=== PATIENT | female | born 1985 ===

== ENCOUNTER 2021-07-24 14:10 | Outpatient (CLI) | payer SELFPAY ==
[2021-07-24 15:54] LABS: Hematocrit 35.6 % (30.3-42.9); Mean Corpuscular HGB Conc 34 % (30-34); Mean Corpuscular Volume 87 fl (79-97); Platelet Count 222 K/mm3 (140-440); Red Blood Count 4.08 M/mm3 (3.65-5.03); Red Cell Distribution Width 13.9 % (13.2-15.2)
[2021-07-24 16:14] LABS: Alanine Aminotransferase 11 units/L (7-56); Uric Acid 4.6 mg/dL (3.5-7.6)
[2021-07-24 17:24] VITALS: BP 116/60
--- NOTE | 2021-07-24 18:17 | Ultrasound Report ---
Limited OB ultrasound Biophysical profile INDICATION: well-being FINDINGS: Single live anterior in cephalic position. AMY measures 13.1. heart rate 14 8. Estimated age 36 weeks 3 days. Biophysical profile measures 8 out of 8 IMPRESSION: Live intrauterine . Normal biophysical profile Signer Name: Eric Allen MD Signed: 07/24/2021 6:12 PM Workstation Name: [facility]
--- NOTE | 2021-07-24 18:17 | Ultrasound Report ---
Limited OB ultrasound Biophysical profile INDICATION: well-being FINDINGS: Single live anterior in cephalic position. AMY measures 13.1. heart rate 14 8. Estimated age 36 weeks 3 days. Biophysical profile measures 8 out of 8 IMPRESSION: Live intrauterine . Normal biophysical profile Signer Name: Eric Allen MD Signed: 07/24/2021 6:12 PM Workstation Name: [facility]
== END 2021-07-24 17:50 | disposition home or self-care (01) ==
LOC: TRG 14:10 → LD 14:14 → TRG 17:50
PROVIDERS: ATTEND Obstetrics & Gynecology
DX: O13.3 Gestational [pregnancy-induced] hypertension without significant proteinuria, third trimester (principal); Z3A.36 36 weeks gestation of pregnancy
CPT/HCPCS: 36415; 76815; 76819; 82565; 82962; 83615; 84450; 84460; 84550; 85027

== ENCOUNTER 2021-08-06 20:33 | Inpatient (IN) | payer SELFPAY ==
--- NOTE | 2021-08-06 22:09 | History and Physical Report ---
History of Present Illness Date of examination: 08/06/21 Date of admission: 08/06/2021 Chief complaint: Contractions History of present illness: 35 y/o at 38-1/7 weeks presents to OBT reporting CTX that are irregular. No VB or LOF. Good FM. In OBT, cervix was closed. However, BP's >160/110 in OBT. No SOSA, diplopia, RUQ pain, or scotomata. Labetalol 20 mg IVP x1 given. Thereafter, BP's <140/90. The patient is admitted to L&D for IOL secondary to pre-eclampsia with severe features. She had previous x2. She desires TOLAC. Maternal pulse was suspected to be abnormal. EKG was performed and bigeminy was noted. Cardiology was consulted. She has a history of GDMA2 on metformin. Past History Past Medical History: diabetes (Gestational Diabetes A2 (on Metformin 500 mg BID)) Past Surgical History: section ( x2. Unknown scar.) Family/Genetic History: none Social history: no significant social history - Obstetrical History Expected Date of Delivery: 08/19/21 Actual Gestation: 38 Week(s) 2 Day(s) : 3 Para: 2 Medications and Allergies Allergies Allergy/AdvReac Type Severity Reaction Status Date / Time No Known Allergies Allergy Verified 08/06/21 23:19 Review of Systems All systems: negative - Vital Signs Vital signs: Vital Signs Pulse BP 52 L 140/90 08/06/21 21:32 08/06/21 21:32 Temp Pulse Resp BP Pulse Ox 62 16 140/90 98 08/06/21 22:03 08/06/21 21:35 08/06/21 21:35 08/06/21 22:03 - Physical Exam Breasts: Positive: normal Cardiovascular: Other (Bigeminy) Lungs: Positive: Normal air movement Abdomen: Positive: normal appearance Genitourinary (Female): Positive: normal external genitalia, normal perenium Vulva: both: normal Vagina: Positive: normal moisture Uterus: Positive: enlarged Adnexa: both: normal Anus/Rectum: Positive: normal perianal skin Extremities: Positive: normal Deep Tendon Reflex Grade: Normal +2 - Obstetrical FHR: category 1 Uterine Contraction Monitor Mode: External Cervical Dilatation: 0 Cervical Effacement Percentage: 0 station: -3 Uterine Contraction Pattern: Absent Results Result Diagrams: 08/06/21 22:57 08/06/21 22:57 All other labs normal. Urine Protein to Creatinine Ratio (UPCR) = 0.55. There is significant proteinuria. Estimated 24 hour urine protein= 700 mg EGG= Bigeminy Ultrasound: report reviewed (OB US Limnted= SLIUP. Vertex. EFW= 3317 g (52nd %-ile). AMY= 8.3 cm.) Assessment and Plan - Patient Problems (1) 38 weeks gestation of Current Visit: Yes Status: Acute Plan to address problem: care is up-to- date at [facility]. GBS was not performed. No risk factors for GBS at this time. Will tx with PCN if risk factors develop per CDC MMWR 2010 guidelines. (2) Severe pre-eclampsia in third trimester Current Visit: Yes Status: Acute Plan to address problem: BP >160/110 in OBT and estimated 24 hour urine protein= 700 mg. Therefore, this patient has pre-eclampsia with severe features. Labetalol 20 mg IVP x1 brought BP <140/90. Follow ACOG HTN safety bundle. MgSO4 drip in active labor. (3) Previous delivery affecting , antepartum Current Visit: Yes Status: Acute Plan to address problem: The patient had 2 previous c-sections. The scars are unknown. She desires TOLAC. The patient was counselled regarding the risk of uterine rupture with TOLAC is 0.5-0.7%. She wishes to proceed. (4) Desires (vaginal after ) trial Current Visit: Yes Status: Acute Plan to address problem: The patient had 2 previous c-sections. The scars are unknown. She desires TOLAC. The patient was counselled regarding the risk of uterine rupture with TOLAC is 0.5-0.7%. She wishes to proceed. (5) Gestational diabetes mellitus (GDM) treated with oral hypoglycemic therapy Current Visit: Yes Status: Acute Plan to address problem: HgBA1c was 5.0 on May 28, 2021. However, HgBA1c was 6.4 on admission. As such, this patient is likely an undiagnosed Class B diabetic. Nevertheless, glucose on admission CMP is 76. Check FBS and 2 hour post-prandial accu-check while on CLD. When in active labor, accu-checks q 1 hour. If accu-checks are >99, then start insulin. If accu-checks are <79, then change IVF's to D5 0.9 NS. (6) Bigeminy Current Visit: Yes Status: Acute Plan to address problem: Bigeminy noted on EKG. Cardiology (Dr. Welch) was consulted. S/P Labetalol 20 mg IVP x1. BP has stabilized. (7) Encounter for induction of labor Current Visit: Yes Status: Acute Plan to address problem: Ripen cervix with Cook's catheter and vaginal IMN x1 dose. (8) Advanced maternal age during in third trimester Current Visit: Yes Status: Acute Plan to address problem: Normal quad screen.
[2021-08-06] MEDS ORDERED: LACTATED RINGERS 1,000 ML ONE (23:17)
[2021-08-06] MEDS ORDERED: TERBUTALINE 1 MG/1 ML INJ SUB-Q PRN (23:18)
[2021-08-06] MEDS ORDERED: OXYTOCIN 10 UNIT/1 ML INJ IM PRN (23:18)
[2021-08-06] MEDS ORDERED: fentaNYL 100 MCG/2 ML INJ IV PRN (23:18)
[2021-08-06] MEDS ORDERED: BUTORPHANOL 2 MG/1 ML INJ IV PRN (23:18)
[2021-08-06] MEDS ORDERED: CARBOPROST TROMETHAMINE 250 MCG/1 ML INJ IM PRN (23:18)
[2021-08-06] MEDS ORDERED: ePHEDrine SULFATE 50 MG/1 ML INJ IV PRN (23:18)
[2021-08-06] MEDS ORDERED: LACTATED RINGERS 1,000 ML IV SCH (23:30)
[2021-08-06 23:38] LABS: Bacteria,Urine 1+ /HPF (Negative); Bilirubin,Urine NEG (Negative); Blood,Urine LG (Negative); Color,Urine Yellow (Yellow); Mucus,Urine 1+ /HPF; Protein,Urine <15 mg/dL mg/dL (Negative); Urobilinogen,Urine < 2.0 mg/dL (<2.0)
[2021-08-06] MEDS ORDERED: miSOPROStol 25 MCG TAB PO SCH (23:45)
[2021-08-06] MEDS ORDERED: OXYTOCIN DRIP 30 UNITS/500 ML BAG IV SCH (23:45)
[2021-08-06 23:48] LABS: Creatinine,Urine 52.4 mg/dL (0.1-20.0)
--- NOTE | 2021-08-06 23:48 | Ultrasound Report ---
ULTRASOUND OBSTETRIC Indication: Elevated blood pressure Findings: There is a single intrauterine . BPD = 9.3 cm = 37 weeks, 5 day(s). Head circumference = 33.1 cm = 37 weeks, 5 day(s). Abdominal circumference = 34.7 cm = 38 weeks, 4 day(s). Femur length = 7.0 cm = 36 weeks, 0 day(s). Overall estimated sonographic age = 37 weeks, 4 day(s). heart rate is 150 beats per minute. Estimated weight is 3317 grams position is cephalic. Cervix appears closed. movement is present. Amniotic fluid volume appears normal. Impression: 1. Single living intrauterine with estimated sonographic age of 37 weeks, 4 day(s). 2. No sonographic abnormality identified. Signer Name: James Brown MD Signed: 08/06/2021 11:43 PM Workstation Name: [email or web address]
[2021-08-07 00:05] LABS: Basophils % (Auto) 0.2 % (0.0-1.8); Eosinophils % (Auto) 0.2 % (0.0-4.3); Hematocrit 36.2 % (30.3-42.9); Hemoglobin 12.4 gm/dl (10.1-14.3); Lymphocytes # (Auto) 2.7 K/mm3 (1.2-5.4); Lymphocytes % (Auto) 33.6 % (13.4-35.0); Mean Corpuscular HGB Conc 34 % (30-34); Mean Corpuscular Volume 87 fl (79-97); Monocytes # (Auto) 0.5 K/mm3 (0.0-0.8); Platelet Count 181 K/mm3 (140-440); Red Blood Count 4.17 M/mm3 (3.65-5.03); Red Cell Distribution Width 14.5 % (13.2-15.2)
[2021-08-07 00:23] LABS: Alanine Aminotransferase 9 units/L (7-56); Albumin 3.3 g/dL (3.9-5); Blood Urea Nitrogen 9 mg/dL (7-17); Calcium 8.6 mg/dL (8.4-10.2); Hemolysis Index 3
[2021-08-07 00:29] LABS: BUN/Creatinine Ratio 15
[2021-08-07] MEDS ORDERED: SODIUM CHLORIDE 0.9% 1000 ML 1,000 ML IV SCH (02:00)
[2021-08-07 02:31] LABS: Uric Acid 4.4 mg/dL (3.5-7.6)
[2021-08-07] MEDS: ACETAMINOPHEN 325 MG TAB PO PRN ×2 (05:26→12:19)
[2021-08-07] MEDS ORDERED: MAGNESIUM SULFATE 2 GM/50 ML BAG IV ONE (06:00)
[2021-08-07] MEDS ORDERED: MAGNESIUM SULFATE 4 GM/100 ML BAG IV ONE (06:00)
[2021-08-07] MEDS ORDERED: MAGNESIUM SULFATE 40GM/1000ML 40 GM/1,000 ML BAG IV SCH (06:20)
[2021-08-07] MEDS ORDERED: hydrALAZINE 20 MG/1 ML INJ IV STA (07:20)
[2021-08-07] MEDS ORDERED: hydrALAZINE 20 MG/1 ML INJ ONE (07:23)
[2021-08-07] MEDS ORDERED: LACTATED RINGERS 1,000 ML ONE (08:05)
[2021-08-07] MEDS ORDERED: miSOPROStol 200 MCG TAB ONE (08:31)
[2021-08-07] MEDS ORDERED: MINERAL OIL 30 ML ORAL LIQD ONE (08:32)
[2021-08-07] MEDS ORDERED: LIDOCAINE (2%) 20 MG/1 ML VIAL 20 ML MDV INFILTRATI ONE (08:43)
[2021-08-07] MEDS ORDERED: WITCH HAZEL/ GLYCERIN PAD TP PRN ×2 (11:00→19:44)
[2021-08-07] MEDS ORDERED: LANOLIN/ZINC/DIMETHICONE (LANSINOH) 7 GM TP PRN ×2 (11:00→19:44)
[2021-08-07] MEDS ORDERED: HYDROcodone/ACETAMINOPHEN 5-325 MG TAB PO PRN (11:00)
[2021-08-07] MEDS ORDERED: diphenhydrAMINE 25 MG CAP PO PRN ×2 (11:00→19:44)
[2021-08-07] MEDS ORDERED: BENZOCAINE/MENTHOL 20/0.5% TOP SPRAY 56 GM TP PRN (11:00)
[2021-08-07] MEDS ORDERED: ONDANSETRON 4 MG/2 ML INJ IV PRN ×2 (11:00→19:44)
--- NOTE | 2021-08-07 11:16 | Procedure Note ---
OB Delivery Note - Delivery Date of Delivery: 08/07/21 (0835) Surgeon: SIVAKUMAR MASON Estimated blood loss: 300cc - Vaginal Delivery presentation: vertex Delivery position: OA Intrapartum events: preeclampsia, other(please specify) (GDM A2) Delivery induction: other (Monoket 20mg per vagina and Aaron Cathether) Delivery monitor: external FHT, internal uterine Route of delivery: Delivery placenta: spontaneous Delivery cord: 3 umbilical vessels Delivery laceration: 1st degree Delivery repair: vicryl Anesthesia: local Delivery comments: of a live 7'6 male without pain control with Apgars of 8 and 9 at 0835 on 08/07/2021 under a 1st degree periurethral laceration. directly to maternal abd/chest, skin to skin contact. Laceration repaired with 2-0 Vicryl on a SH under local 2% Lidocaine. Spontaneous delivery of placenta complete and intact with Cook side presenting at 0840. Fundus is firm and midline located 4 below the U. Lochia is scant. 800mcg placed per rectum. Cord blood collected; placenta to pathology. - Infant A at 1 minute: 8 at 5 minutes: 9 Gender: Male (7'6)
[2021-08-07] MEDS ORDERED: PROMETHAZINE 25 MG RECT SUPP PR PRN ×2 (11:30→19:44)
--- NOTE | 2021-08-07 17:12 | Consultation ---
History of Present Illness Consult date: 08/07/21 Requesting physician: MELIDA SINGH Consult reason: other (ventricular bigeminy) History of present illness: This is a 35-year-old female, unknown to our practice, with past medical history significant for gestational diabetes, preeclampsia, and tachycardia, who presented to [facility] for irregular contractions. Information was obtained using an radiology interventional physician. Upon review of records, her blood pressure was elevated upon arrival to the hospital where she was admitted to labor and delivery with preeclampsia with severe features. She was subsequently found to have an abnormal pulse, an EKG was performed which shows ventricular bigeminy. Upon my exam, patient was approximately 1 hour post delivery of her child. She denied palpitations, chest pain, or shortness of breath. She did endorse a slight h eadache and stated she had had some dizziness for the last 3 weeks. She further stated that she has had tachycardia since she was 10 years old. However, she could not remember the name of the medication that was used. She plans to breast-feed. Of note, after speaking with the TOWER TECHNICIAN, she reported that the patient had seen a metal weigher at some point many years ago who had ordered a Holter monitor and told her that she no longer needed the medication for tachycardia. Cardiology was consulted for ventricular bigeminy. Past History Past Medical History: other (Preeclampsia, gestational diabetes, tachycardia) Past Surgical History: Social history: no significant social history Family history: CAD, hypertension Medications and Allergies Allergies Allergy/AdvReac Type Severity Reaction Status Date / Time No Known Allergies Allergy Verified 08/06/21 23:19 Active Meds: Active Medications Acetaminophen (Acetaminophen 325 Mg Tab) 650 mg PO Q4H PRN PRN Reason: Pain, Mild (1-3) Last Admin: 08/07/21 12:19 Dose: 650 mg Hydrocodone Bitart/Acetaminophen (Hydrocodone/Acetaminophen 5-325 Mg Tab) 2 each PO Q6H PRN PRN Reason: Pain, Moderate (4-6) Benzocaine/Menthol (Benzocaine/Menthol 20/0.5% [place] 56 Gm) 1 spray TP PRN PRN PRN Reason: Episiotomy Pain Bisacodyl (Bisacodyl 10 Mg Rect Supp) 10 mg NJ BID PRN PRN Reason: Constipation Carboprost Tromethamine (Carboprost Tromethamine 250 Mcg/1 Ml Inj) 250 mcg IM ONCE PRN PRN Reason: Uterine Bleeding Diphenhydramine HCl (Diphenhydramine 25 Mg Cap) 25 mg PO Q6H PRN PRN Reason: Itching Ephedrine Sulfate (Ephedrine Sulfate 50 Mg/1 Ml Inj) 10 mg IV Q2M PRN PRN Reason: Hypotension Oxytocin/Sodium Chloride (Pitocin/Ns 30 Unit/500ml) 30 units in 500 mls @ 40 mls/hr IV TITR ELENO; Protocol Magnesium Sulfate (Magnesium Sulfate 40gm/1000ml) 40 gm in 1,000 mls @ 50 mls/hr IV DIRECT ELENO Sodium Chloride (Nacl 0.9% 1000 Ml) 1,000 mls @ 125 mls/hr IV DIRECT ELENO Last Admin: 08/07/21 03:10 Dose: 125 mls/hr Multi-Ingredient Ointment (Lanolin/Zinc/Dimethicone (Lansinoh) 7 Gm) 1 applic TP PRN PRN PRN Reason: Sore Nipples Multivitamins/Iron/Calcium ( [id number] Fumarate-Folic Acid Vit Tab) 1 ea ch PO QDAY ELENO Ondansetron HCl (Ondansetron 4 Mg/2 Ml Inj) 4 mg IV Q8H PRN PRN Reason: Nausea And Vomiting Oxytocin (Oxytocin 10 Unit/1 Ml Inj) 10 unit IM ONCE PRN PRN Reason: Uterine Bleeding Promethazine HCl (Promethazine 25 Mg Rect Supp) 25 mg NJ Q6H PRN PRN Reason: Nausea And Vomiting Sodium Chloride (Sodium Chloride 0.9% 10 Ml Flush Syringe) 10 ml IV PRN PRN PRN Reason: flush Terbutaline Sulfate (Terbutaline 1 Mg/1 Ml Inj) 0.25 mg SUB-Q ONCE PRN PRN Reason: Hyperstimulation/Hypertonicity Witch Linn/Glycerin (Witch [place]inn/ Glycerin Pad) 1 each TP PRN PRN PRN Reason: Hemorrhoid/cleansing/soothing Review of Systems All systems: negative Cardiovascular: lightheadedness Neurological: headaches Physical Examination Vital Signs Pulse BP 52 L 140/90 08/06/21 21:32 08/06/21 21:32 General appearance: no acute distress HEENT: Positive: Normocephaly, Mucus Membranes Moist Neck: Positive: trachea midline Cardiac: Positive: S1/S2, Bradycardia Lungs: Positive: Normal Exam Neuro: Positive: Grossly Intact Abdomen: Positive: Soft, Active Bowel Sounds Female genitourinary: deferred Skin: Negative: Rash Extremities: Present: normal. Absent: edema Results 08/06/21 22:57 08/06/21 22:57 Cardiac Enzymes 08/06/21 Range/Units 22:57 AST 23 (5-40) units/L Lactate Dehydrogenase 172 (91-180) units/L CBC 08/06/21 Range/Units 22:57 WBC 7.9 (4.5-11.0) K/mm3 RBC 4.17 (3.65-5.03) M/mm3 Hgb 12.4 (10.1-14.3) gm/dl Hct 36.2 (30.3-42.9) % Plt Count 181 (140-440) K/mm3 Lymph # (Auto) 2.7 (1.2-5.4) K/mm3 [place] # (Auto) 0.5 (0.0-0.8) K/mm3 Eos # (Auto) 0.0 (0.0-0.4) K/mm3 Baso # (Auto) 0.0 (0.0-0.1) K/mm3 Comprehensive Metabolic Panel 08/06/21 Range/Units 22:57 Sodium 135 L (137-145) mmol/L Potassium 3.8 (3.6-5.0) mmol/L Chloride 103.2 (98-107) mmol/L Carbon Dioxide 16 L (22-30) mmol/L BUN 9 (7-17) mg/dL Creatinine 0.6 (0.6-1.2) mg/dL Glucose 76 (65-100) mg/dL Calcium 8.6 (8.4-10.2) mg/dL AST 23 (5-40) units/L ALT 9 (7-56) units/L Alkaline Phosphatase 177 H (35-129) units/L Total Protein 6.5 (6.3-8.2) g/dL Albumin 3.3 L (3.9-5) g/dL - Imaging and Cardiology Echo: report reviewed EKG: image reviewed EKG interpretations - EKG Sinus rhythms and dysrhythmias: sinus bradycardia (Ventricular bigeminy) Assessment and Plan Assessment Ventricular bigeminy Preeclampsia state History of gestational diabetes History of section History of tachycardia Cardiographics EKG- ventricular bigeminy Echo 08/07/21-LV systolic function is normal. LVEF is 50%. There is no pericardial effusion Recommendations/plan -Upon exam, patient blood pressure controlled systolic blood pressure in the 120s. -Patient noted to be on magnesium infusion -Echocardiogram as above, EF 50% -Recommend continuous telemetry monitoring. Have discussed this with TOWER TECHNICIAN, however continuous telemetry is unable to be done in labor and delivery. Have spoken with the OB to assist in the transfer to a telemetry floor once patient is stable from L&D standpoint. -Recheck EKG -Consider labetalol if patient continues in ventricular bigeminy. Continuous telemetry monitoring is highly encouraged. Thank you for this consultation, will follow along. Patient seen in conjunction with Dr. Mcintosh who agrees with the assessment and management of this patient. - Patient Problems (1) 38 weeks gestation of Current Visit: Yes Status: Acute (2) Advanced maternal age during in third trimester Current Visit: Yes Status: Acute (3) Bigeminy Current Visit: Yes Status: Acute (4) Encounter for induction of labor Current Visit: Yes Status: Acute (5) Gestational diabetes mellitus (GDM) treated with oral hypoglycemic therapy Current Visit: Yes Status: Acute (6) Severe pre-eclampsia in third trimester Current Visit: Yes Status: Acute
[2021-08-07] MEDS ORDERED: PROMETHAZINE 25 MG TAB PO PRN (19:44)
[2021-08-07] MEDS ORDERED: MAGNESIUM HYDROXIDE (MOM) ORAL LIQD UDC PO PRN (19:44)
[2021-08-07 21:19] LABS: Hemoglobin 11.3 gm/dl (10.1-14.3)
[2021-08-08] MEDS ORDERED: HYDROcodone/ACETAMINOPHEN 5-325 MG TAB PO PRN (08:00)
[2021-08-08] MEDS ORDERED: MAGNESIUM SULFATE 40GM/1000ML 40 GM/1,000 ML BAG IV SCH (08:35)
[2021-08-08] MEDS: ACETAMINOPHEN 325 MG TAB PO PRN (09:41)
[2021-08-08] MEDS: DOCUSATE SODIUM 100 MG CAP PO SCH ×2 (09:41→21:24)
[2021-08-08 09:47] LABS: Uric Acid 5.1 mg/dL (3.5-7.6)
[2021-08-08 09:54] LABS: Hematocrit 36.9 % (30.3-42.9); Hemoglobin 12.1 gm/dl (10.1-14.3); Mean Corpuscular HGB Conc 33 % (30-34); Mean Corpuscular Volume 87 fl (79-97); Platelet Count 217 K/mm3 (140-440); Red Blood Count 4.23 M/mm3 (3.65-5.03); Red Cell Distribution Width 14.5 % (13.2-15.2)
[2021-08-08] MEDS ORDERED: PRENATAL VIT27-FE FUMARATE-FOLIC ACID VIT TAB PO SCH (10:00)
[2021-08-08] MEDS ORDERED: SODIUM CHLORIDE 0.9% 1000 ML 1,000 ML IV SCH (11:45)
[2021-08-08 12:28] LABS: Blood Urea Nitrogen 5 mg/dL (7-17); Calcium 6.8 mg/dL (8.4-10.2); Hemolysis Index 13
[2021-08-08 12:53] LABS: BUN/Creatinine Ratio 7
--- NOTE | 2021-08-08 14:36 | Progress Note ---
Assessment and Plan - Patient Problems (1) Status post vaginal delivery Current Visit: Yes Status: Acute Plan to address problem: Stable obstetrically. Subjective - Subjective Date of service: 08/08/21 Principal diagnosis: day 1. Patient reports: appetite normal, voiding normally, pain well controlled, other (Bedrest on telemetry unit.) : doing well Objective - Vital Signs Latest vital signs: Vital Signs Temp Pulse Resp BP Pulse Ox 08/08/21 08:59 94 H 08/08/21 08:39 98 08/08/21 08:36 97.8 F 64 18 149/87 96 08/08/21 04:00 98 08/08/21 03:38 98.8 F 96 H 12 124/82 99 08/07/21 23:19 99.5 F 97 H 12 142/88 97 08/07/21 20:00 100 08/07/21 19:37 98.7 F 94 H 12 135/83 98 08/07/21 18:25 88 18 134/97 99 08/07/21 16:56 103 H 99 08/07/21 16:51 104 H 100 08/07/21 16:47 104 H 123/73 08/07/21 16:46 107 H 100 08/07/21 16:41 108 H 100 08/07/21 16:36 98 H 98 08/07/21 16:32 94 H 129/73 08/07/21 16:31 90 98 08/07/21 16:26 98 H 98 08/07/21 16:21 97 H 99 08/07/21 16:17 100 H 128/74 08/07/21 16:16 95 H 98 08/07/21 16:11 99 H 98 08/07/21 16:06 94 H 98 08/07/21 16:02 93 H 133/71 08/07/21 16:01 95 H 98 08/07/21 15:56 99 H 98 08/07/21 15:51 96 H 98 08/07/21 15:47 104 H 122/68 08/07/21 15:46 100 H 98 08/07/21 15:41 105 H 99 08/07/21 15:36 104 H 98 08/07/21 15:32 101 H 140/64 08/07/21 15:31 109 H 98 08/07/21 15:26 108 H 98 08/07/21 15:21 98 H 98 08/07/21 15:17 102 H 129/81 08/07/21 15:16 102 H 99 08/07/21 15:11 101 H 98 08/07/21 15:06 108 H 98 08/07/21 15:02 92 H 126/71 08/07/21 15:01 96 H 99 08/07/21 14:56 96 H 99 08/07/21 14:51 116 H 97 08/07/21 14:47 110 H 119/70 08/07/21 14:46 108 H 98 08/07/21 14:41 120 H 99 08/07/21 14:36 111 H 99 Intake and Output 08/07/21 08/08/21 08/08/21 23:59 07:59 15:59 Intake Total 240 Output Total 600 1600 Balance -600 -1360 Intake: Oral 240 Output: Urine 600 1600 Indwelling Catheter 600 1600 Other: Total, Intake Amount 240 Total, Output Amount 600 450 Voiding Method Indwelling Catheter Indwelling Catheter - Exam Breasts: Present: deferred Lungs: Present: Normal air movement Abdomen: Present: normal appearance, soft Uterus: Present: normal, firm Extremities: Present: normal Deep Tendon Reflex Grade: Normal +2 - Labs Labs: Abnormal lab results 08/08/21 08/08/21 08/08/21 Range/Units 08:42 08:44 08:44 WBC 11.6 H (4.5-11.0) K/mm3 Sodium 132 L (137-145) mmol/L Carbon Dioxide 18 L (22-30) mmol/L BUN 5 L (7-17) mg/dL Calcium 6.8 L D (8.4-10.2) mg/dL Magnesium 4.50 H (1.7-2.3) mg/dL Lactate Dehydrogenase 374 H (91-180) units/L
--- NOTE | 2021-08-08 15:05 | Progress Note ---
Assessment and Plan This is a 35-year-old female, unknown to our practice, with past medical history significant for gestational diabetes, preeclampsia, and tachycardia, who presented to [facility] for irregular contractions. Ventricular bigeminy Preeclampsia state History of gestational diabetes History of section History of tachycardia Echo 08/07/21-LV systolic function is normal. LVEF is 50%. There is no pericardial effusion Plan: Repeat EKG shows sinus rhythm 86 no signs of bigeminy Patient currently sinus tach with PVCs on monitor. Patient also hypertensive. If okay with OB initiate labetalol 100 mg p.o. twice daily Sinus tach may be due to dehydration if okay with OB recommend initiation of IVF. Repeat BMP in a.m. Patient seen in conjunction with Dr. Mcintosh who agrees with the assessment and management of this patient. - Patient Problems (1) 38 weeks gestation of Current Visit: Yes Status: Acute (2) Bigeminy Current Visit: Yes Status: Acute (3) Gestational diabetes mellitus (GDM) treated with oral hypoglycemic therapy Current Visit: Yes Status: Acute (4) Status post vaginal delivery Current Visit: Yes Status: Acute Subjective Date of service: 08/08/21 Principal diagnosis: day 1. Interval history: Patient resting in bed in no acute distress. Patient reports feeling well this a.m. Patient sinus tach 100s and episodes into the 130s on monitor with PVCs Objective Vital Signs Temp Pulse Resp BP Pulse Ox 08/08/21 08:59 94 H 08/08/21 08:39 98 08/08/21 08:36 97.8 F 64 18 149/87 96 08/08/21 04:00 98 08/08/21 03:38 98.8 F 96 H 12 124/82 99 08/07/21 23:19 99.5 F 97 H 12 142/88 97 08/07/21 20:00 100 08/07/21 19:37 98.7 F 94 H 12 135/83 98 08/07/21 18:25 88 18 134/97 99 08/07/21 16:56 103 H 99 08/07/21 16:51 104 H 100 08/07/21 16:47 104 H 123/73 08/07/21 16:46 107 H 100 08/07/21 16:41 108 H 100 08/07/21 16:36 98 H 98 08/07/21 16:32 94 H 129/73 08/07/21 16:31 90 98 08/07/21 16:26 98 H 98 08/07/21 16:21 97 H 99 08/07/21 16:17 100 H 128/74 08/07/21 16:16 95 H 98 08/07/21 16:11 99 H 98 08/07/21 16:06 94 H 98 08/07/21 16:02 93 H 133/71 08/07/21 16:01 95 H 98 08/07/21 15:56 99 H 98 08/07/21 15:51 96 H 98 08/07/21 15:47 104 H 122/68 08/07/21 15:46 100 H 98 08/07/21 15:41 105 H 99 08/07/21 15:36 104 H 98 08/07/21 15:32 101 H 140/64 08/07/21 15:31 109 H 98 08/07/21 15:26 108 H 98 08/07/21 15:21 98 H 98 08/07/21 15:17 102 H 129/81 08/07/21 15:16 102 H 99 08/07/21 15:11 101 H 98 08/07/21 15:06 108 H 98 - Physical Examination General: No Apparent Distress HEENT: Positive: Normocephaly, Mucus Membranes Moist Neck: Positive: trachea midline Cardiac: Positive: Regular Rhythm, Tachycardia Lungs: Positive: clear to auscultation, Normal Breath Sounds Neuro: Positive: Grossly Intact Abdomen: Positive: Soft, Active Bowel Sounds Skin: Negative: Rash Extremities: Present: normal. Absent: edema - Labs and Meds Cardiac Enzymes 08/08/21 Range/Units 08:44 AST 30 (5-40) units/L Lactate Dehydrogenase 374 H (91-180) units/L CBC 08/07/21 08/08/21 Range/Units 20:47 08:44 WBC 11.6 H (4.5-11.0) K/mm3 RBC 4.23 (3.65-5.03) M/mm3 Hgb 11.3 12.1 (10.1-14.3) gm/dl Hct 33.0 36.9 (30.3-42.9) % Plt Count 217 (140-440) K/mm3 Comprehensive Metabolic Panel 08/08/21 08/08/21 Range/Units 08:42 08:44 Sodium 132 L (137-145) mmol/L Potassium 4.0 (3.6-5.0) mmol/L Chloride 98.7 (98-107) mmol/L Carbon Dioxide 18 L (22-30) mmol/L BUN 5 L (7-17) mg/dL Creatinine 0.7 (0.6-1.2) mg/dL Glucose 100 (65-100) mg/dL Calcium 6.8 L D (8.4-10.2) mg/dL AST 30 (5-40) units/L ALT 8 (7-56) units/L - Imaging and Cardiology EKG: image reviewed Echo: report reviewed - Telemetry EKG Rhythm: Sinus Rhythm - EKG Sinus rhythms and dysrhythmias: sinus rhythm
--- NOTE | 2021-08-08 20:14 | Electrocardiograph Report ---
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
--- NOTE | 2021-08-08 20:35 | Electrocardiograph Report ---
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
[2021-08-09] MEDS: DOCUSATE SODIUM 100 MG CAP PO SCH ×2 (09:16→22:30)
[2021-08-09 10:32] LABS: Basophils % (Auto) 0.3 % (0.0-1.8); Eosinophils # (Auto) 0.1 K/mm3 (0.0-0.4); Eosinophils % (Auto) 0.8 % (0.0-4.3); Hematocrit 32.2 % (30.3-42.9); Hemoglobin 10.9 gm/dl (10.1-14.3); Lymphocytes # (Auto) 2.6 K/mm3 (1.2-5.4); Lymphocytes % (Auto) 28.9 % (13.4-35.0); Mean Corpuscular HGB Conc 34 % (30-34); Mean Corpuscular Volume 88 fl (79-97); Monocytes # (Auto) 0.5 K/mm3 (0.0-0.8); Monocytes % (Auto) 5.6 % (0.0-7.3); Platelet Count 208 K/mm3 (140-440); Red Blood Count 3.68 M/mm3 (3.65-5.03); Red Cell Distribution Width 14.8 % (13.2-15.2)
[2021-08-09 10:51] LABS: Hematocrit 31.7 % (30.3-42.9); Hemoglobin 10.9 gm/dl (10.1-14.3); Mean Corpuscular HGB Conc 35 % (30-34); Mean Corpuscular Volume 87 fl (79-97); Platelet Count 208 K/mm3 (140-440); Red Blood Count 3.64 M/mm3 (3.65-5.03)
[2021-08-09 11:01] LABS: Alanine Aminotransferase 8 units/L (7-56); Albumin 2.8 g/dL (3.9-5); BUN/Creatinine Ratio 11; Blood Urea Nitrogen 8 mg/dL (7-17); Calcium 8.7 mg/dL (8.4-10.2); Hemolysis Index 4
[2021-08-09 11:10] LABS: Blood Urea Nitrogen 8 mg/dL (7-17); Calcium 8.8 mg/dL (8.4-10.2); Hemolysis Index 1
[2021-08-09 11:12] LABS: BUN/Creatinine Ratio 11
--- NOTE | 2021-08-09 11:37 | Progress Note ---
Assessment and Plan This is a 35-year-old female, unknown to our practice, with past medical history significant for gestational diabetes, preeclampsia, and tachycardia, who presented to [facility] for irregular contractions. Ventricular bigeminy Preeclampsia state History of gestational diabetes History of section History of tachycardia Echo 08/07/21-LV systolic function is normal. LVEF is 50%. There is no pericardial effusion Plan: Patient having bigeminy on monitor this a.m. if okay with OB increased to labetalol 150 mg p.o. twice daily Patient no longer in sinus tachycardia If patient no longer in bigeminy this this afternoon patient may be transferred to unit cardiac status otherwise stable Patient should follow-up as an outpatient 1 to 2 weeks after discharge Patient seen in conjunction with Dr. Mcintosh who agrees with the assessment and management of this patient. - Patient Problems (1) 38 weeks gestation of Current Visit: Yes Status: Acute (2) Bigeminy Current Visit: Yes Status: Acute (3) Gestational diabetes mellitus (GDM) treated with oral hypoglycemic therapy Current Visit: Yes Status: Acute (4) Status post vaginal delivery Current Visit: Yes Status: Acute Subjective Date of service: 08/09/21 Principal diagnosis: day 1. Interval history: Patient resting in bed in no acute distress. Patient has no complaints this AM Patient sinus tach trending 80s to 90s with bigeminy this a.m. Objective Vital Signs Temp Pulse Resp BP Pulse Ox 08/09/21 09:15 100 H 08/09/21 07:38 98.7 F 52 L 16 130/65 97 08/09/21 03:28 98.7 F 78 16 135/86 99 08/08/21 23:30 98.8 F 79 12 127/81 98 08/08/21 19:44 98 08/08/21 19:19 98.8 F 92 H 16 106/68 99 08/08/21 16:13 98.7 F 86 18 123/70 96 - Physical Examination General: No Apparent Distress HEENT: Positive: Normocephaly, Mucus Membranes Moist Neck: Positive: trachea midline Cardiac: Positive: Reg Rate and Rhythm Lungs: Positive: Normal Breath Sounds Neuro: Positive: Grossly Intact Abdomen: Positive: Soft, Active Bowel Sounds Skin: Negative: Rash Extremities: Present: normal. Absent: edema - Labs and Meds Cardiac Enzymes 08/09/21 Range/Units 10:06 AST 29 (5-40) units/L CBC 08/09/21 08/09/21 Range/Units 10:06 10:26 WBC 9.0 9.2 (4.5-11.0) K/mm3 RBC 3.68 3.64 L (3.65-5.03) M/mm3 Hgb 10.9 10.9 (10.1-14.3) gm/dl Hct 32.2 31.7 (30.3-42.9) % Plt Count 208 208 (140-440) K/mm3 Lymph # (Auto) 2.6 (1.2-5.4) K/mm3 [place] # (Auto) 0.5 (0.0-0.8) K/mm3 Eos # (Auto) 0.1 (0.0-0.4) K/mm3 Baso # (Auto) 0.0 (0.0-0.1) K/mm3 Comprehensive Metabolic Panel 08/08/21 08/09/21 08/09/21 Range/Units 08:42 10:06 10:26 Sodium 132 L 141 D 139 (137-145) mmol/L Potassium 4.0 4.2 4.2 (3.6-5.0) mmol/L Chloride 98.7 107.5 H 106.7 (98-107) mmol/L Carbon Dioxide 18 L 20 L 20 L (22-30) mmol/L BUN 5 L 8 8 (7-17) mg/dL Creatinine 0.7 0.7 0.7 (0.6-1.2) mg/dL Glucose 100 120 H 117 H (65-100) mg/dL Calcium 6.8 L D 8.7 D 8.8 (8.4-10.2) mg/dL AST 29 (5-40) units/L ALT 8 (7-56) units/L Alkaline Phosphatase 117 (35-129) units/L Total Protein 5.7 L (6.3-8.2) g/dL Albumin 2.8 L (3.9-5) g/dL - Imaging and Cardiology EKG: image reviewed Echo: report reviewed - Telemetry EKG Rhythm: Sinus Rhythm - EKG Sinus rhythms and dysrhythmias: sinus rhythm Ventricular dysrhythmias: ventricular premature com (Bigeminy)
--- NOTE | 2021-08-09 17:30 | Progress Note ---
Assessment and Plan A: day 2 S/P . Anemia. Preeclampsia; blood pressure controlled on Labetalol 150 mg po BID. GDM. Bigeminy, resolved. A: Supplement with iron. Continue Labetalol 150 mg po BID. Anticipate discharge home tomorrow if patient continues to do well. Subjective - Subjective Date of service: 08/09/21 Principal diagnosis: day 2 S/P Interval history: Doing well. Patient reports: appetite normal, voiding normally, pain well controlled, flatus, ambulating normally, no dizzy ambulation, no nauseated [place]: doing well Objective - Vital Signs Latest vital signs: Vital Signs Temp Pulse Pulse Resp BP Pulse Ox 08/09/21 16:10 97.8 F 88 20 127/83 99 08/09/21 13:30 99.0 F 102 H 16 113/75 99 08/09/21 12:44 75 16 99 08/09/21 09:15 100 H 08/09/21 07:38 98.7 F 52 L 16 130/65 97 08/09/21 03:28 98.7 F 78 16 135/86 99 08/08/21 23:30 98.8 F 79 12 127/81 98 08/08/21 19:44 98 08/08/21 19:19 98.8 F 92 H 16 106/68 99 Intake and Output 08/09/21 08/09/21 08/09/21 07:59 15:59 23:59 Other: Voiding Method Toilet - Exam Abdomen: Present: normal appearance, soft. Absent: distention, tenderness, guarding, rigidity Uterus: Present: normal, firm, fundal height below umbilicus. Absent: bogginess, tenderness Extremities: Absent: tenderness, edema - Labs Labs: Abnormal lab results 08/09/21 08/09/21 08/09/21 Range/Units 10:06 10:26 10:26 RBC 3.64 L (3.65-5.03) M/mm3 MCHC 35 H (30-34) % Chloride 107.5 H (98-107) mmol/L Carbon Dioxide 20 L 20 L (22-30) mmol/L Glucose 120 H 117 H (65-100) mg/dL POC Glucose (70-105) mg/dL Total Protein 5.7 L (6.3-8.2) g/dL Albumin 2.8 L (3.9-5) g/dL 08/09/21 Range/Units 14:10 RBC (3.65-5.03) M/mm3 MCHC (30-34) % Chloride (98-107) mmol/L Carbon Dioxide (22-30) mmol/L Glucose (65-100) mg/dL POC Glucose 128 H (70-105) mg/dL Total Protein (6.3-8.2) g/dL Albumin (3.9-5) g/dL
[2021-08-09] MEDS: FERROUS SULFATE 325 MG TAB PO SCH (22:30)
--- NOTE | 2021-08-10 08:18 | Progress Note ---
Assessment and Plan A: day 3 S/P . Anemia. Preeclampsia. BP controlled on Labetalol 150 mg po BID. GDM. Bradycardia. P: Consulted with Dr. Meier re: pulse of [address] Meier states to have nurse call quality assurance qa lab analyst who saw patient here in hospital re: bradycardia. Called RN Leyla and instructed her to call vital signs to quality assurance qa lab analyst. Continue iron supplementation. Continue routine care. Subjective - Subjective Date of service: 08/10/21 Principal diagnosis: day 3 S/P Interval history: Doing well. Patient reports: appetite normal, voiding normally, pain well controlled, ambulating normally, no dizzy ambulation, no nauseated [place]: doing well Objective - Vital Signs Latest vital signs: Vital Signs Temp Pulse Pulse Resp BP BP Pulse Ox 08/10/21 06:29 50 L 148/77 08/10/21 01:35 97.6 F 84 18 138/67 98 08/09/21 22:31 50 L 136/71 08/09/21 22:29 98.1 F 50 L 16 136/71 99 08/09/21 21:35 08/09/21 16:10 97.8 F 88 20 127/83 99 08/09/21 13:30 99.0 F 102 H 16 113/75 99 08/09/21 12:44 75 16 99 08/09/21 09:15 100 H Pulse Ox 08/10/21 06:29 08/10/21 01:35 08/09/21 22:31 08/09/21 22:29 08/09/21 21:35 98 08/09/21 16:10 08/09/21 13:30 08/09/21 12:44 08/09/21 09:15 Intake and Output 08/09/21 08/10/21 08/10/21 23:59 07:59 15:59 Intake Total 240 120 Output Total 100 Balance 140 120 Intake: Oral 240 120 Output: Urine 100 Void 100 Other: Total, Intake Amount 240 120 Total, Output Amount 100 # Voids Void 1 - Exam Cardiovascular: Present: Other (Regular, pulse of 50 bpm) Lungs: Present: Clear to auscultation Abdomen: Present: normal appearance, soft. Absent: distention, tenderness, guarding, rigidity Uterus: Present: normal, firm, fundal height below umbilicus (fundus firm and midline at 2 FB below umbilicus). Absent: bogginess, tenderness Extremities: Absent: tenderness - Labs Labs: Abnormal lab results 08/09/21 08/09/21 08/09/21 Range/Units 10:06 10:26 10:26 RBC 3.64 L (3.65-5.03) M/mm3 MCHC 35 H (30-34) % Chloride 107.5 H (98-107) mmol/L Carbon Dioxide 20 L 20 L (22-30) mmol/L Glucose 120 H 117 H (65-100) mg/dL POC Glucose (70-105) mg/dL Total Protein 5.7 L (6.3-8.2) g/dL Albumin 2.8 L (3.9-5) g/dL 08/09/21 Range/Units 14:10 RBC (3.65-5.03) M/mm3 MCHC (30-34) % Chloride (98-107) mmol/L Carbon Dioxide (22-30) mmol/L Glucose (65-100) mg/dL POC Glucose 128 H (70-105) mg/dL Total Protein (6.3-8.2) g/dL Albumin (3.9-5) g/dL
[2021-08-10] MEDS: ACETAMINOPHEN 325 MG TAB PO PRN (10:17)
[2021-08-10] MEDS: DOCUSATE SODIUM 100 MG CAP PO SCH ×2 (10:18→21:51)
[2021-08-10] MEDS: FERROUS SULFATE 325 MG TAB PO SCH ×2 (10:18→21:51)
--- NOTE | 2021-08-10 10:32 | Progress Note ---
Assessment and Plan This is a 35-year-old female, unknown to our practice, with past medical history significant for gestational diabetes, preeclampsia, and tachycardia, who presented to [facility] for irregular contractions. Ventricular bigeminy Preeclampsia state History of gestational diabetes History of section History of tachycardia Echo 08/07/21-LV systolic function is normal. LVEF is 50%. There is no pericardial effusion rec: Decrease labetalol 100 mg twice a day as patient has a mild dizziness. Patient will follow up cardiology clinic in [address] christopher balbuena, [phone] [facility], no further bigemeny noted Subjective Date of service: 08/10/21 Principal diagnosis: day 3 S/P Interval history: no palpations mild dizziness Objective Vital Signs Temp Pulse Pulse Resp BP BP Pulse Ox 08/10/21 10:16 50 L 08/10/21 08:31 98.3 F 50 L 22 150/58 100 08/10/21 06:29 50 L 148/77 08/10/21 01:35 97.6 F 84 18 138/67 98 08/09/21 22:31 50 L 136/71 08/09/21 22:29 98.1 F 50 L 16 136/71 99 08/09/21 21:35 08/09/21 16:10 97.8 F 88 20 127/83 99 08/09/21 13:30 99.0 F 102 H 16 113/75 99 08/09/21 12:44 75 16 99 Pulse Ox 08/10/21 10:16 08/10/21 08:31 08/10/21 06:29 08/10/21 01:35 08/09/21 22:31 08/09/21 22:29 08/09/21 21:35 98 08/09/21 16:10 08/09/21 13:30 08/09/21 12:44 - Physical Examination General: No Apparent Distress HEENT: Positive: Normocephaly, Mucus Membranes Moist Neck: Positive: trachea midline Cardiac: Positive: Reg Rate and Rhythm Lungs: Positive: clear to auscultation Neuro: Positive: Grossly Intact Abdomen: Positive: Soft, Active Bowel Sounds Skin: Negative: Rash Extremities: Present: normal. Absent: edema - Labs and Meds Cardiac Enzymes 08/09/21 Range/Units 10:06 AST 29 (5-40) units/L CBC 08/09/21 08/09/21 Range/Units 10:06 10:26 WBC 9.0 9.2 (4.5-11.0) K/mm3 RBC 3.68 3.64 L (3.65-5.03) M/mm3 Hgb 10.9 10.9 (10.1-14.3) gm/dl Hct 32.2 31.7 (30.3-42.9) % Plt Count 208 208 (140-440) K/mm3 Lymph # (Auto) 2.6 (1.2-5.4) K/mm3 [place] # (Auto) 0.5 (0.0-0.8) K/mm3 Eos # (Auto) 0.1 (0.0-0.4) K/mm3 Baso # (Auto) 0.0 (0.0-0.1) K/mm3 Comprehensive Metabolic Panel 08/09/21 08/09/21 Range/Units 10:06 10:26 Sodium 141 D 139 (137-145) mmol/L Potassium 4.2 4.2 (3.6-5.0) mmol/L Chloride 107.5 H 106.7 (98-107) mmol/L Carbon Dioxide 20 L 20 L (22-30) mmol/L BUN 8 8 (7-17) mg/dL Creatinine 0.7 0.7 (0.6-1.2) mg/dL Glucose 120 H 117 H (65-100) mg/dL Calcium 8.7 D 8.8 (8.4-10.2) mg/dL AST 29 (5-40) units/L ALT 8 (7-56) units/L Alkaline Phosphatase 117 (35-129) units/L Total Protein 5.7 L (6.3-8.2) g/dL Albumin 2.8 L (3.9-5) g/dL - Imaging and Cardiology EKG: image reviewed Echo: report reviewed - Telemetry EKG Rhythm: Sinus Rhythm - EKG Sinus rhythms and dysrhythmias: sinus rhythm Ventricular dysrhythmias: ventricular premature com (Bigeminy)
[2021-08-11] MEDS: DOCUSATE SODIUM 100 MG CAP PO SCH (10:42)
[2021-08-11] MEDS: FERROUS SULFATE 325 MG TAB PO SCH (10:42)
--- NOTE | 2021-08-11 11:37 | Progress Note ---
Assessment and Plan A: day 4 S/P . Anemia. Preeclampsia. BP controlled on Labetalol 100 mg po BID. P: Patient cleared for discharge by chief airport guide. Discussed with patient discharge instructions and warning signs. Advised patient to continue taking her vitamin and iron supplement at home. Advised patient to continue Labetalol 100 mg po BID as recommended by chief airport guide. Advised patient to avoid intercourse, lifting, housework. Advised patient to follow up at [facility] clinic in 1 week and to follow up with chief airport guide in 2 weeks. Patient voiced understanding of all instructions. Subjective - Subjective Date of service: 08/11/21 Principal diagnosis: day 4 S/P Interval history: Patient cleared for discharge by chief airport guide. Patient requests to go home today. Patient reports: appetite normal, voiding normally, pain well controlled, flatus, ambulating normally, no dizzy ambulation, no nauseated [place]: doing well Objective - Vital Signs Latest vital signs: Vital Signs Temp Pulse Resp BP BP Pulse Ox Pulse Ox 08/11/21 11:06 96 H 127/63 08/11/21 10:50 96 H 08/11/21 10:45 88 08/11/21 10:43 47 L 127/63 08/11/21 08:25 98.2 F 48 L 20 122/54 97 08/11/21 06:05 98 08/11/21 05:18 98.0 F 49 L 20 120/72 98 08/11/21 03:40 98 08/11/21 01:55 98 08/11/21 00:39 98.2 F 88 20 123/71 97 08/10/21 23:10 98 08/10/21 21:52 107 H 118/76 08/10/21 21:50 98 08/10/21 20:32 98.0 F 107 H 20 118/76 99 08/10/21 19:55 98 08/10/21 17:38 98.3 F 54 L 18 137/70 96 Intake and Output 08/10/21 08/11/21 08/11/21 23:59 07:59 15:59 Intake Total 720 240 Balance 720 240 Intake: Oral 480 240 Intake, Free Water 240 Other: Total, Intake Amount 240 240 # Voids Void 1 1 - Exam Cardiovascular: Present: Regular rate Lungs: Present: Clear to auscultation Abdomen: Present: normal appearance, soft, normal bowel sounds. Absent: distention, tenderness, guarding, rigidity Uterus: Present: normal, firm, fundal height below umbilicus (fundus firm and midline at 2 FB below umbilicus). Absent: bogginess, tenderness Extremities: Absent: tenderness, edema
--- NOTE | 2021-08-11 11:45 | Discharge Summary ---
Providers - Providers Date of Admission: 08/06/21 21:03 Date of discharge: 08/11/21 Attending physician: MELIDA SINGH 08/08/21 11:46 Consult to Physician [CONS] Routine Comment: Consulting Provider: JOSÉ VALLE Physician Instructions: Reason For Exam: PVCs, HTN Primary care physician: MELIDA SINGH Hospitalization Reason for admission: active labor Delivery: Laceration: 1st degree Discharge diagnosis: IUP at term delivered baby: male Pertinent studies: Labs, EKG Hospital course: Stable hospital course Condition at discharge: Good Disposition: 01 HOME / SELF CARE / HOMELESS - Discharge Diagnoses (1) Term delivered Status: Acute (2) Anemia Status: Acute Plan - Discharge Medications Prescriptions: Ferrous Sulfate [Feosol 325 MG tab] 325 mg PO BID 30 Days #60 tablet labetaloL [Labetalol 100mg TAB] 100 mg PO BID 14 Days #28 tab - Provider Discharge Summary Activity: routine, no sex for 6 weeks, no heavy lifting 4 weeks, no strenuous exercise Diet: routine Instructions: routine Additional instructions: Continue taking your iron supplements and vitamin at home. Take Labetalol 100 mg po BID (Rx on chart). Follow up at [facility] clinic in 1 week. Follow up with professor of family medicine in 2 weeks. Call your doctor immediately for: * Fever > 100.5 * Heavy vaginal bleeding ( >1 pad per hour) * Severe persistent headache * Shortness of breath * Reddened, hot, painful area to leg or breast - Follow up plan Follow up: PRIMARY CARE, [Referring] - 7 Days
[2021-08-11 16:40] VITALS: BP 130/80
== END 2021-08-11 18:15 | disposition home or self-care (01) | DRG 807 ==
LOC: TRG 20:33 → APU 20:35 → TRG 20:35 → UNDOFXCLISVC 20:50 → APU 20:50 → LD 21:03 → APU 08-07 02:17 → TRG 08-07 09:05 → UNDOADMIN 08-07 09:05 → LD 08-07 09:05 → 4A 08-07 17:09 → OB 08-09 15:03
PROVIDERS: ADMIT Obstetrics & Gynecology; ATTEND Obstetrics & Gynecology
PROC: 10E0XZZ Delivery of Products of Conception, External Approach (ICD-10-PCS; principal; 2021-08-07)
PROC: 0HQ9XZZ Repair Perineum Skin, External Approach (ICD-10-PCS; 2021-08-07)
DX: O24.429 Gestational diabetes mellitus in childbirth, unspecified control (principal); Z37.0 Single live birth; Z3A.38 38 weeks gestation of pregnancy; Z20.822 Contact with and (suspected) exposure to COVID-19; O14.14 Severe pre-eclampsia complicating childbirth; O34.211 Maternal care for low transverse scar from previous cesarean delivery; O70.0 First degree perineal laceration during delivery; O99.893 Other specified diseases and conditions complicating puerperium; O90.81 Anemia of the puerperium; R00.1 Bradycardia, unspecified
CPT/HCPCS: 36415; 59025; 76816; 80048; 80053; 81001; 82570; 82962; 83036; 83615; 83735; 84156; 84450; 84460; 84550; 85014; 85018; 85025; 85027; 86592; 86850; 86900; 86901; 88307; 93005; 93306; 96360; 96361; 96365; 96366; G0378; J3490; Q0162; C8929; J0360; J3475; J7030; J7120; U0003